=== PATIENT | female | born 1985 | race Caucasian/White ===

== ENCOUNTER 2017-05-28 22:24 | Emergency (ER) | payer OTHER ==
[~2017-05-28] VITALS: Ht 152.4 cm; Wt 93.3 kg
[~2017-05-28 22:24] MED LIST: 12 HOUR DECONG120 M1 PO; ABILIFY10 MG PO; ADVIL200 MG PO; ATARAX,VISTARIL25 MG PO; ATARAX,VISTARIL50 MG PO; BACTRIM,SEPT1 TABLE1 PO; BUPROPION XL150 MG PO; CARDIZEM CD180 MG PO; COREG12.5 M1 PO; DEPAKOTE250 MG PO; DIVALPROEX SOD250 MG PO; DYAZIDE, MA1 CAPSULE PO; EFFEXOR25 MG PO; FLEXERIL10 MG PO; FLEXERIL5 MG PO; IBUPROFEN600 MG; IMITREX100 MG PO; IMITREX6 MG/0.53 SC; KEFLEX500 MG PO; LASIX40 MG PO; LEXAPRO5 MG PO; LISINOPRIL20 MG PO; LISINOPRIL40 MG PO; MOTRIN600 MG PO; MOTRIN800 MG PO; NAPROXEN500 MG PO; NORCO 5/3251 TABLET PO; PERCOCET 5/31 TABLET PO; PRINIVIL20 MG PO; PRINIVIL5 MG PO; QUETIAPINE FUM100 MG PO; SALINE NASAL SP45 ML NS; SEROQUEL100 MG PO; ULTRAM50 MG PO; VENLAFAXINE HCL75 M3 PO; XANAX0.25 MG PO; XANAX0.5 MG PO; ZESTRIL40 MG PO; ZOFRAN4 MG PO; ZOLOFT100 MG PO; ZOLPIDEM TARTRAT5 MG PO
[2017-05-28 23:31] VITALS: BP 165/129
== END 2017-05-28 23:49 | disposition home or self-care (01) ==
LOC: EME 22:24
DX: F33.2 Major depressive disorder, recurrent severe without psychotic features (principal); J45.909 Unspecified asthma, uncomplicated; I10 Essential (primary) hypertension; Z87.442 Personal history of urinary calculi; F17.200 Nicotine dependence, unspecified, uncomplicated
CPT/HCPCS: 80048; 85027; 90837; 99281; 99285; G0480

== ENCOUNTER 2017-07-10 19:16 | Emergency (ER) | payer OTHER ==
[~2017-07-10] VITALS: Ht 152.4 cm; Wt 93.0 kg
[2017-07-10 20:47] LABS: HEMATOCRIT 40.3 % (36.0-46.0); MCHC 35.7 G/DL (30.0-36.0); MCV 89.6 FL (83-99); MEAN PLAT.VOLUME 9.5 uM^3 (9.5-12.4); PLATELET COUNT 277 K/uL (156-360); RBC DIS.WIDTH-CV 12.2 % (11.8-14.6); RBC DIS.WIDTH-SD 39.9 % (39-53); WHITE BLOOD COUNT 15.6 K/uL (4.1-10.2)
[2017-07-10 20:57] LABS: CHLORIDE 104 mEq/L (99-109); POTASSIUM 3.7 mEq/L (3.7-5.4); SODIUM 136 mEq/L (136-147)
[2017-07-10 20:59] LABS: GLUCOSE 104 mg/dL (70-99)
[2017-07-10 21:00] LABS: ANION GAP 12 MEQ/L (2-14)
[2017-07-10 21:02] LABS: GFR ESTIMATE (CALCULATED) > 59 mL/min/
[2017-07-10 21:04] LABS: UREA NITROGEN (BUN) 9 mg/dL (9-23)
[2017-07-10 21:11] LABS: QUANTITATIVE HCG < 4.0 MIU/ML
[2017-07-10] MEDS ORDERED: CIPRO500 MG PO (22:27)
[2017-07-10] MEDS ORDERED: AUGMENTIN875 MG PO (22:27)
[2017-07-10] MEDS ORDERED: NORCO 5/3251 TABLET PO (22:29)
[2017-07-10] MEDS ORDERED: NEOMYCIN-POLYMY10 ML LEFT EAR (23:42)
[2017-07-10 23:51] VITALS: BP 201/95
== END 2017-07-10 23:52 | disposition home or self-care (01) ==
LOC: EME 19:16
PROVIDERS: Physician Assistant
DX: H60.92 Unspecified otitis externa, left ear (principal); Z87.891 Personal history of nicotine dependence; I10 Essential (primary) hypertension
CPT/HCPCS: 70487; 80048; 83605; 84702; 85027; 87040; 99281; 99284; J0744; J1885; J7030

== ENCOUNTER 2017-10-08 08:58 | Day surgery (SDC) | payer OTHER ==
[~2017-10-08] VITALS: Ht 152.4 cm; Wt 102.2 kg
[~2017-10-08 08:58] MED LIST changes: +AUGMENTIN875 MG PO; +CIPRO500 MG PO; +NEOMYCIN-POLYMY10 ML LEFT EAR
[2017-10-08 10:32] LABS: HEMATOCRIT 41.4 % (36.0-46.0); MCH 32.5 PG (29.0-34.0); MCV 90.2 FL (83-99); PLATELET COUNT 151 K/uL (156-360); RBC DIS.WIDTH-CV 12.9 % (11.8-14.6); RBC DIS.WIDTH-SD 42.2 % (39-53); RED BLOOD COUNT 4.59 M/uL (3.80-5.20); WHITE BLOOD COUNT 8.7 K/uL (4.1-10.2)
[2017-10-08 10:47] LABS: CHLORIDE 107 mEq/L (99-109); POTASSIUM 3.8 mEq/L (3.7-5.4); SODIUM 138 mEq/L (136-147)
[2017-10-08 10:50] LABS: GLUCOSE 118 mg/dL (70-99)
[2017-10-08 10:51] LABS: ANION GAP 9 MEQ/L (2-14)
[2017-10-08 10:52] LABS: TOTAL BILIRUBIN 0.4 mg/dL (0.0-1.0)
[2017-10-08 10:53] LABS: ALKALINE PHOSPHATASE 80 IU/L (3-129); GFR ESTIMATE (CALCULATED) > 59 mL/min/
[2017-10-08 10:54] LABS: UREA NITROGEN (BUN) 11 mg/dL (9-23)
[2017-10-08 10:57] LABS: LIPASE 17 U/L (1.0-51.0)
[2017-10-08 11:07] LABS: QUANTITATIVE HCG < 4.0 MIU/ML
[2017-10-08 12:07] LABS: BILIRUBIN NEGATIVE; BLOOD NEGATIVE; COLOR YELLOW ((YELLOW)); GLUCOSE (STRIP) NEGATIVE; KETONES NEGATIVE; LEUKOCYTES NEGATIVE; NITRITE NEGATIVE; PROTEIN (STRIP) NEGATIVE; SPECIFIC GRAVITY 1.045 (1.000-1.030); UROBILINOGEN 0.2 MG/DL (0.2-1.0)
[2017-10-08 12:09] LABS: ADD MIUA? NO; UCUL ADDED? NO
[2017-10-08] MEDS ORDERED: PHENTERMINE H37.5 MG PO ×2 (13:04→13:05)
[2017-10-08] MEDS ORDERED: RISPERDAL1 MG PO (13:04)
[2017-10-08] MEDS ORDERED: ALPRAZOLAM0.25 M2 PO (13:06)
[2017-10-08 19:57] VITALS: BP 143/82
[2017-10-09 00:39] VITALS: BP 168/99
[2017-10-09 03:53] VITALS: BP 184/99
[2017-10-09 05:45] VITALS: BP 184/101
[2017-10-09 07:16] LABS: HEMATOCRIT 36.5 % (36.0-46.0); MCH 33.1 PG (29.0-34.0); MCHC 35.9 G/DL (30.0-36.0); MCV 92.2 FL (83-99); MEAN PLAT.VOLUME 9.9 uM^3 (9.5-12.4); PLATELET COUNT 141 K/uL (156-360); RBC DIS.WIDTH-CV 13.2 % (11.8-14.6); RBC DIS.WIDTH-SD 44.9 % (39-53); RED BLOOD COUNT 3.96 M/uL (3.80-5.20); WHITE BLOOD COUNT 9.9 K/uL (4.1-10.2)
[2017-10-09 07:25] VITALS: BP 165/101
[2017-10-09 07:38] LABS: ANION GAP 7 MEQ/L (2-14); CHLORIDE 106 MEQ/L (99-109); GFR ESTIMATE (CALCULATED) > 59 mL/min/; GLUCOSE 106 mg/dL (70-99); SAMPLE HEMOLYSIS CHECK 0; SAMPLE ICTERIC CHECK 0; SAMPLE LIPEMIA CHECK 0; SODIUM 136 MEQ/L (136-147); UREA NITROGEN (BUN) 8 mg/dL (9-23)
[2017-10-09 10:42] VITALS: BP 137/78
[2017-10-09] MEDS ORDERED: OXYCODONE HCL5 MG PO (11:47)
== END 2017-10-09 15:56 | disposition home or self-care (01) ==
LOC: EME 08:58 → SDC 15:47 → ENRESERV 16:55 → 2EAST 17:07 → 2SOUTH 17:07 → ENRESERV 18:10 → 2EAST 18:45
PROVIDERS: Nurse Practitioner Family; Surgery
PROC: 0DTJ4ZZ Resection of Appendix, Percutaneous Endoscopic Approach (ICD-10-PCS; principal; 2017-10-08)
DX: K35.80 Unspecified acute appendicitis (principal); I10 Essential (primary) hypertension; J45.909 Unspecified asthma, uncomplicated; F31.9 Bipolar disorder, unspecified; G43.809 Other migraine, not intractable, without status migrainosus; Z87.442 Personal history of urinary calculi; G89.29 Other chronic pain; E66.01 Morbid (severe) obesity due to excess calories; Z68.41 Body mass index [BMI] 40.0-44.9, adult; Z87.891 Personal history of nicotine dependence; Z88.5 Allergy status to narcotic agent
CPT/HCPCS: 74177; 80048; 80053; 81003; 83690; 84702; 85027; 88304; 99202; 99281; 99285; G0378; J0330; J1170; J2250; J2270; J2405; J3010; J7030; J7120; S0074